=== PATIENT | female | born 1960 | race Caucasian/White ===

== ENCOUNTER → 2017-08-13 09:21 | Day surgery (SDC) | payer OTHER, SELFPAY ==
--- NOTE | 2017-08-13 10:09 | HMH.PMPROC ---
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 She is doing very well with her intrathecal hydromorphone pain pump. She is currently going at 0.15 mg per day. She has no complaints and no side effects. She was to continue with the same dose. We will refill her today. She does have a normal gait. Motor strength of the lower extremities is 5/5. There is no gross sensory deficit. Procedure Details:: Informed consent was obtained and the risks and benefits of the procedure was explained to the patient. The patient was taken to the procedure room. The pump was interrogated. The area over the pump was prepped using ChloraPrep. The pump was accessed with a 22-gauge needle. Approximately 4.5 mL's of the intrathecal solution was withdrawn and discarded. The pump was then refilled with 20 mL's of intrathecal hydromorphone 1 mg/mL. The pump was interrogated and the infusion was continued at 0.15 mg per day. The patient tolerated the procedure well with no complication. Plan and Disposition:: We will follow-up with her at her next pump refill. If she has any problems or questions she is to call me back in the pain clinic.
[2017-08-13 10:10] VITALS: BP 154/96; PULSE 98; RESP 18; TEMP 36.8; O2SAT 97; BMI 34.7
[2017-08-13 10:15] VITALS: BP 142/95; PULSE 95; RESP 18; O2SAT 97
--- NOTE | 2019-02-18 09:12 | PC.NURSE ---
called patient, with no response, to schedule an office follow up appointment.
== END ==
PROVIDERS: Visit Provider Anesthesiology
DX: M51.16 Intervertebral disc disorders with radiculopathy, lumbar region (principal)
CPT/HCPCS: 95991

== ENCOUNTER → 2019-03-29 14:51 | Outpatient (POV) | payer BC, SELFPAY ==
[2019-03-29 15:03] VITALS: BP 145/95; PULSE 78; RESP 18; O2SAT 98; BMI 36.1
--- NOTE | 2019-03-30 08:31 | HMH.PAINSOAP ---
[facility] Pain Management SOAP Note Subjective:: She is a very pleasant 58-year-old white female who presents today for follow-up. Patient has an intrathecal pain pump which is a hydromorphone pump going at 0.15 mg/day. She states that this is extremely beneficial she denies any side effects to it she is having relief of low back pain. However today her pain is muscular in nature it is in her neck and shoulders. Patient has palpable trigger points. 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 She rates her pain today 7 out of 10 ROS General: no recent weight change, no fever, no sleep disturbances Respiratory: no cough, no shortness of air, no recurring pulmonary infections Cardiovascular/Peripheral Vascular: No chest pain, No palpitations, no edema, no shortness of breath. Gastrointestinal: no incontinence, normal bowel movements reported Genitourinary: no incontinence Musculoskeletal: Neck pain, arm pain Psychiatric: normal mood/ affect Neurological: [denies weakness in extremities], [denies balance issues] Objective:: Physical Exam General: Alert and oriented x3, no acute distress, pleasant and cooperative, [on room air] Lungs: Resps E/U, Symmetrical chest expansion, Eyes: PERRL Musculoskeletal: Flexion and extension of cervical spine somewhat guarded secondary to pain, deep tendon reflexes normal, strength in upper and lower extremities [5/5], normal gait noted Neurological: speech clear, life skills coordinator equal, no gross sensory deficits Assessment:: Degenerative disc disease lumbar spine with lumbar radiculopathy symptoms and myofascial pain syndrome Plan:: We will start the patient on Zanaflex 2 to 4 mg 1 p.o. 3 times daily as needed. We will also start her on some diclofenac cream see if this is beneficial for her she can call us if she has any issues however if she is doing well we are going to continue this and see her back in [address] Melendez has reviewed this note and agrees with this plan of care. This note was dictated using voice recognition software and may contain errors or omissions [facility] History I have reviewed the patient's past medical history: Yes Medical History: Reports:: Hyperlipidemia, Hypertension Denies:: Cancer, Diabetes Mellitus Type 1, Diabetes Mellitus Type 2, MRSA, Seizures *Have you ever received a pneumonia vaccine?: Yes *Have you received a flu vaccine this season?: Yes Other Medical History: Reports: Arthritis Other Surgeries: Yes: Other (pain pump implant, cysto) Amputation: No Fractures: No - *Social History Smoking Status: Never smoker Alcohol Intake: never *Occupational Status:: other *Travel in the last 8 weeks: None Family Hx:: Non-contributory
== END ==
PROVIDERS: Visit Provider Clinical Nurse Specialist Family Health
DX: M51.16 Intervertebral disc disorders with radiculopathy, lumbar region (principal); M79.18 Myalgia, other site
CPT/HCPCS: 99212

== ENCOUNTER → 2019-11-29 14:41 | Outpatient (POV) | payer BC, SELFPAY ==
--- NOTE | 2019-11-30 07:48 | HMH.VVPMSO ---
[facility] Virtual Visit SOAP Consent for virtual visit:: With the recent concerns about the COVID-19, we are trying to minimize exposure to you by shifting to telehealth appointments whenever possible. It restricts me from seeing you in person, but the trade off is protecting you during this pandemic. Can you see and hear me okay, and do you consent to this option? If not, I would be happy to see if we can reschedule your appointment in the future, when feasible. Has patient consented to this virtual visit?: Yes Subjective:: Patient is a pleasant 59-year-old white female who presents today for a telehealth visit. Patient has an intrathecal pain pump which she has hydromorphone. She is doing extremely well with this. She rates her pain a 2 out of 10. She is on a home refill program. Patient's urine drug screens have been appropriate. Her Ronaldo #[id number] reviewed and appropriate. ROS General: no recent weight change, no fever, no sleep disturbances Respiratory: no cough, no shortness of air, no recurring pulmonary infections Cardiovascular/Peripheral Vascular: No chest pain, No palpitations, no edema, no shortness of breath. Gastrointestinal: no new onset incontinence, normal bowel movements reported Genitourinary: no new onset incontinence Musculoskeletal: Back pain at times Psychiatric: normal mood/ affect, Neurological: [denies new onset weakness in extremities], [denies new onset balance issues] Objective:: Physical exam: Constitutional: Healthy appearing, well-developed, alert, in no acute distress Psychiatric: Judgment and insight intact, Alert and oriented x4 Mood and affect: Mood normal, affect appropriate Head and face: Inspection: Normocephalic atraumatic, extraocular movement intact Respiratory: Breathing nonlabored, nondyspneic Cardiovascular: No cyanosis, clubbing, or edema observed Skin: Head and neck: Skin with no lesions or rash observed Gait: Able to walk without assistive device: Able to heel and toe walk Neurologic: Sensation grossly intact per patient Musculoskeletal: Decreased range of motion lumbar spine noted Assessment:: Degenerative disc disease lumbar spine with lumbar radiculopathy symptoms Plan:: We will see the patient back in 6 months reassess her symptoms at that that time she has been instructed to call the office if she has any issues prior to her next appointment. Dr. Melendez has reviewed this note and agrees with this plan of care. This note was dictated using voice recognition software and may contain errors or omissions Time In:: 14:45 Time Out:: 14:51 [facility] History I have reviewed the patient's past medical history: Yes Medical History: Reports:: Hyperlipidemia, Hypertension Denies:: Cancer, Diabetes Mellitus Type 1, Diabetes Mellitus Type 2, MRSA, Seizures *Have you ever received a pneumonia vaccine?: Yes *Have you received a flu vaccine this season?: Yes Other Medical History: Reports: Arthritis Other Surgeries: Yes: Other (pain pump implant, cysto) Amputation: No Fractures: No - *Social History Smoking Status: Never smoker Alcohol Intake: never *Occupational Status:: other *Travel in the last 8 weeks: None Family Hx:: Non-contributory
== END ==
PROVIDERS: Visit Provider Clinical Nurse Specialist Family Health
DX: M51.16 Intervertebral disc disorders with radiculopathy, lumbar region (principal)
CPT/HCPCS: 99212

== ENCOUNTER → 2020-06-08 13:51 | Outpatient (POV) | payer BC, SELFPAY ==
--- NOTE | 2020-06-08 14:28 | P.CONS_ITS ---
[facility] Pain Management SOAP Note Subjective:: Patient is a pleasant 59-year-old white female who presents today for follow-up. Patient has an intrathecal pain pump she has hydromorphone. She is doing extremely well with this. She rates her pain today 4 out of 10. She is on a home refill program. Her urine drug screens have been appropriate. [facility] #[id number] reviewed and appropriate. Patient is continuing to work. ROS General: no recent weight change, no fever, no sleep disturbances Respiratory: no cough, no shortness of air, no recurring pulmonary infections Cardiovascular/Peripheral Vascular: No chest pain, No palpitations, no edema, no shortness of breath. Gastrointestinal: no new onset incontinence, normal bowel movements reported Genitourinary: no new onset incontinence Musculoskeletal: Back pain, leg pain, neck pain Psychiatric: normal mood/ affect Neurological: [denies new onset weakness in extremities], [denies new onset balance issues] Objective:: Physical Exam General: Alert and oriented x3, no acute distress, pleasant and cooperative, [on room air] Lungs: Resps E/U, Symmetrical chest expansion, Eyes: PERRL Musculoskeletal: Flexion and extension of lumbar spine somewhat guarded secondary to pain, deep tendon reflexes normal, strength in upper and lower extremities [5/5], slightly antalgic gait noted Neurological: speech clear, cheese sprayer equal, no gross sensory deficits Assessment:: Degenerative disc disease lumbar spine lumbar radiculopathy Plan:: We will follow up with the patient in 6 months reassess her symptoms at that time she has been instructed to call the office if she has any issues prior to her next appointment. Dr. Melendez has reviewed this note and agrees with this plan of care. This note was dictated using voice recognition software and may contain errors or omissions [facility] History I have reviewed the patient's past medical history: Yes Medical History: Reports:: Hyperlipidemia, Hypertension Denies:: Cancer, Diabetes Mellitus Type 1, Diabetes Mellitus Type 2, MRSA, Seizures *Have you ever received a pneumonia vaccine?: Yes *Have you received a flu vaccine this season?: Yes Other Medical History: Reports: Arthritis Other Surgeries: Yes: Other (pain pump implant, cysto) Amputation: No Fractures: No - *Social History Smoking Status: Never smoker Alcohol Intake: never *Occupational Status:: other *Travel in the last 8 weeks: None Family Hx:: Non-contributory
[2020-06-08 15:00] VITALS: BP 125/88; PULSE 85; RESP 18; TEMP 36.8; O2SAT 98; BMI 36.6
== END ==
PROVIDERS: Visit Provider Clinical Nurse Specialist Family Health
DX: M51.16 Intervertebral disc disorders with radiculopathy, lumbar region (principal)
CPT/HCPCS: 99212

== ENCOUNTER → 2020-12-07 14:13 | Outpatient (POV) | payer OTHER, SELFPAY ==
[2020-12-07 15:06] VITALS: BP 167/99; PULSE 102; RESP 18; O2SAT 96; BMI 36.6
--- NOTE | 2020-12-07 16:44 | P.CONS_ITS ---
[facility] Pain Management SOAP Note Subjective:: Patient is a 60-year-old white female who presents today for follow-up. She is at home refill patient with intrathecal therapy of hydromorphone. She rates her pain a 2 out of 10 today. She is doing well overall and denies any side effects to her medication. Patient's drug screens are monitored through [employer]. They have been appropriate. Her Ronaldo #[id number] has been reviewed and is appropriate. Review of Systems General: No recent weight changes, no fever, no sleep disturbances Respiratory: No cough, no shortness of air, no recurring pulmonary infections Cardiovascular/peripheral vascular: No chest pain, no palpitations, no edema, no shortness of breath Gastrointestinal: No new onset incontinence, normal bowel movements reported Genitourinary: No new onset incontinence Musculoskeletal: interRemittent low back pain Psychiatric: Normal mood/affect Neurological: [Denies weakness in extremities], [denies balance issues] Objective:: Physical exam General: Alert and oriented x3, no acute distress, pleasant and cooperative, [on room air] Lungs: Respirations even and unlabored, symmetrical chest expansion Eyes: PERRL Musculoskeletal: Flexion and extension of lumbar spine somewhat guarded secondary to pain, deep tendon reflexes normal, strength in upper and lower extremities [5/5], [abnormal gait noted] Neurological: Speech clear, customer support technician equal, no gross sensory deficit Assessment:: Degenerative disc disease lumbar spine with lumbar radiculopathy symptoms Plan:: Patient is doing well overall with her intrathecal therapy. We will plan to follow-up with her in 6 months for reevaluation of her symptoms. Patient has been instructed to contact the clinic with any concerns before the next appointment. Dr. Melendez has reviewed this note and agrees with this plan of care. This note was dictated using voice recognition software and make contain errors or omissions. [facility] History I have reviewed the patient's past medical history: Yes Medical History: Reports:: Hyperlipidemia, Hypertension Denies:: Cancer, Diabetes Mellitus Type 1, Diabetes Mellitus Type 2, MRSA, Seizures *Have you ever received a pneumonia vaccine?: Yes *Have you received a flu vaccine this season?: Yes Other Medical History: Reports: Arthritis Other Surgeries: Yes: Other (pain pump implant, cysto) Amputation: No Fractures: No - *Social History Smoking Status: Never smoker Alcohol Intake: never *Occupational Status:: employed *Travel in the last 8 weeks: None Family Hx:: Non-contributory
== END ==
PROVIDERS: Visit Provider Clinical Nurse Specialist Family Health
DX: M51.16 Intervertebral disc disorders with radiculopathy, lumbar region (principal)
CPT/HCPCS: 99212; G0463

== ENCOUNTER → 2021-05-07 14:16 | Outpatient (POV) | payer OTHER, SELFPAY ==
--- NOTE | 2021-05-07 15:26 | HMH.PAINSOAP ---
[facility] Pain Management SOAP Note Subjective:: Patient is a 60-year-old white female who presents today for 6-month follow-up. She is seen through [facility] and refilled at home. She is also managed with her drug screens through [facility]. 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 She is having increased pain in her cervical spine as well as her right thoracic spine. She does rate her pain a 6 or 7 out of 10. In the past she has had Botox injections for dystonia by Dr. Jang. Unfortunately, the insurance did stop paying for the injections. She is having pain to the right side of her neck with headaches. This has started since doing more hands-on work at her job. She is also having right mid back pain. She has had RFA in the past to the thoracic spine which gave her significant relief years ago. She says the pain also started to this area since having to do more hands-on work. She is continue with physical therapy and home stretching. She does take [id number] medications for inflammation. The patient says the pain has progressively worsened over the last few weeks. She has not had any imaging to her cervical or thoracic spine for some time. She is interested in imaging to determine pathology of pain. Review of Systems General: No recent weight changes, no fever, no sleep disturbances Respiratory: No cough, no shortness of air, no recurring pulmonary infections Cardiovascular/peripheral vascular: No chest pain, no palpitations, no edema, no shortness of breath Gastrointestinal: No new onset incontinence, normal bowel movements reported Genitourinary: No new onset incontinence Musculoskeletal: Sudden neck pain with radiation into right scapular area, headache right side, mid right side back pain Psychiatric: [Normal mood/affect] Neurological: [Denies weakness in extremities], [denies balance issues] Objective:: Physical exam General: Alert and oriented x3, no acute distress, pleasant and cooperative Lungs: Respirations even and unlabored, symmetrical chest expansion Eyes: PERRL Musculoskeletal: Flexion and extension of vocal and thoracic [spine] somewhat guarded secondary to pain, normal gait noted Neurological: Speech clear, no gross sensory deficit Assessment:: Neck pain, headache, mid back pain Plan:: We will schedule the patient for MRI cervical and thoracic spine. She has not had any recent imaging and is having change in pain. Patient is getting significant relief with the pump to her lumbar spine. We will plan to see the patient back after imaging for reevaluation of symptoms and discussion for further plan of care. Patient has been instructed to contact the clinic with any concerns before the next appointment. Dr. Melendez has reviewed this note and agrees with this plan of care. This note was dictated using voice recognition software and make contain errors or omissions. [facility] History I have reviewed the patient's past medical history: Yes Medical History: Reports:: Hyperlipidemia, Hypertension Denies:: Cancer, Diabetes Mellitus Type 1, Diabetes Mellitus Type 2, MRSA, Seizures *Have you ever received a pneumonia vaccine?: Yes *Have you received a flu vaccine this season?: Yes Other Medical History: Reports: Arthritis Other Surgeries: Yes: Other (pain pump implant, cysto) Amputation: No Fractures: No - *Social History Smoking Status: Never smoker Alcohol Intake: never *Occupational Status:: employed *Travel in the last 8 weeks: None Family Hx:: Non-contributory
[2021-05-07 15:30] VITALS: BP 151/86; PULSE 87; RESP 18; O2SAT 98; BMI 37.5
== END ==
PROVIDERS: Visit Provider Clinical Nurse Specialist Family Health
DX: M54.2 Cervicalgia (principal); R51.9 Headache, unspecified; M54.6 Pain in thoracic spine
CPT/HCPCS: 99212; G0463

== ENCOUNTER → 2021-12-10 14:19 | Outpatient (POV) | payer OTHER, SELFPAY ==
[2021-12-10 14:57] VITALS: BP 150/93; PULSE 86; RESP 18; TEMP 36.8; O2SAT 97; BMI 38.2
--- NOTE | 2021-12-10 15:23 | HMH.PAINSOAP ---
[facility] Pain Management SOAP Note Subjective:: Patient is a pleasant 61-year-old female who presents today for follow-up. Patient is currently being treated for degenerative disc disease of the lumbar spine with lumbar radiculopathy symptoms, chronic neck pain and chronic mid back pain. Patient is currently being managed with intrathecal pain pump with the Medtronic System. Patient is currently on Dilaudid 0.18mg/day. Patient is a home refill with [facility]. Denies any issues with the intrathecal pain pump. Today, patient is having some worsening midback pain. She states that she had a rhizotomy in this area several years ago that was done by Dr. Melendez. The ablation helped really well. She continues to work on the computer causing her to have neck and shoulder pain. We did order a cervical and thoracic MRI when we last saw her. Cervical MRI shows multilelvel DDD cervical and has a right moderate neural foraminal narrowing at C5-C6. Thoracic MRI is grossly unremarkable. Rates pain today as 7/10. She does continue to do OMT twice a month. She's tried PT in the past with some relief. Ronaldo [id number], MEQ 0. Review of Systems: General: No recent weight changes, no fever, no sleep disturbances Respiratory: No cough, no shortness of air, no recurring pulmonary infections Cardiovascular/peripheral vascular: No chest pain, no palpitations, no edema, no shortness of breath Gastrointestinal: No new onset incontinence, normal bowel movements reported Genitourinary: No new onset incontinence Musculoskeletal: Neck pain, mid back pain, low back pain Psychiatric: [Normal mood/affect] Neurological: [Denies weakness in extremities], [denies balance issues] Objective:: Physical Exam: General: Alert and oriented x3, no acute distress, pleasant and cooperative Lungs: Respirations even and unlabored, symmetrical chest expansion Eyes: PERRL Musculoskeletal: Flexion and extension of cervical, thoracic and lumbar [spine] somewhat guarded secondary to pain, [antalgic gait noted] Neurological: Speech clear, no gross sensory deficit Assessment:: Degenerative disc disease of lumbar spine with lumbar radiculopathy symptoms, chronic neck pain, chronic mid back pain, myofascial pain Plan:: Patient is doing well with her intrathecal pain pump. Her Medtronic system is at end-of-life in May 2022. We will schedule the patient for a replacement in the next few months. Patient continues to have pain around her mid back just around her bilateral shoulder blades. She states that she had a thoracic RFA in this area in the past. I have looked at her notes in [facility] but I could not see this note. She states that she had this done in [place] at Dr. Jeffrey's office when we used to be there. We will reach out to Dr. Jeffrey's office to see if we can get this note. Once we get this note, we will schedule the patient for a repeat thoracic RFA. I will also refer the patient to PT for further eval of myofascial pain around her neck, shoulder, and shoulder blades. Patient has been instructed to contact the clinic with any concerns before the next appointment. Dr. Melendez has reviewed this note and agrees with this plan of care. This note was dictated using voice recognition software and make contain errors or omissions. [facility] History Medical History: Reports:: Hyperlipidemia, Hypertension Denies:: Cancer, Diabetes Mellitus Type 1, Diabetes Mellitus Type 2, MRSA, Seizures *Have you ever received a pneumonia vaccine?: Yes *Have you received a flu vaccine this season?: No Other Medical History: Reports: Arthritis Other Surgeries: Yes: Other (pain pump implant, cysto) Amputation: No Fractures: No - *Social History Smoking Status: Never smoker Alcohol Intake: never *Occupational Status:: employed *Travel in the last 8 weeks: None Family Hx:: Non-contributory
== END ==
PROVIDERS: Visit Provider Student in an Organized Health Care Education/Training Program
DX: M51.16 Intervertebral disc disorders with radiculopathy, lumbar region (principal); M54.2 Cervicalgia; M54.9 Dorsalgia, unspecified; G89.29 Other chronic pain; M79.18 Myalgia, other site
CPT/HCPCS: 99212; G0463

== ENCOUNTER 2022-04-12 08:55 | Day surgery (SDC) | payer OTHER, SELFPAY ==
[2022-04-10 11:53] VITALS: BMI 36.6
[2022-04-12 09:11] VITALS: BP 161/80; PULSE 84; RESP 18; TEMP 36.2; O2SAT 97
[2022-04-12 09:44] LABS: Chloride 102 mmol/L (98-107); Potassium 3.7 mmoL/L (3.5-5.1); Sodium 141 mmol/L (136-145)
--- NOTE | 2022-04-12 09:45 | EXP.ANES.CKL ---
[facility] PFS Medical History Allergies Anxiety Arthritis Colonoscopy planned Edema History of back pain History of COVID-19 History of gastroesophageal reflux (GERD) Hypertension Osteoarthritis Polypoid cystitis Post-menopausal bleeding Sleep apnea Surgical History History of surgery History of surgery Family History Father Stroke Heart attack Mother Heart attack Lupus Grandmother Stroke Social History Smoking Status: Never smoker alcohol intake: never substance use type: denies use current occupational status: employed Travel in the last 8 weeks: None current occupation: RN current occupational exposures/hazards: No caffeine: Yes [facility] Anesthesia Checklist Patient Identification Patient Identification: Arm Band Structural Data Admitted From: Home Planned Operative Procedure/s: Pain Pump Explaint + Pain Pump Implant Consent for Planned Operative Procedure(s) Verified: Yes Verified Documents: Surgical Consent and History and Physical NPO Status Verified Time NPO: 00:00 Additional verifications Anesthesia Reactions: No Hx Blood Transfusions: No Blood Transfusion Reaction: No Airway Assessment C-Spine Mobility Assessed: Yes TMJ Mobility Assessed: Yes Dentition: Good Dentition Neurological Assessment Level of Consciousness: Awake and Alert Anesthesia Plan Anesthesia Risk discussed: Yes Anesthesia Plan: Verified ASA Class: II Anesthesia Type: MAC
[2022-04-12 09:47] LABS: Anion Gap 9.7 mEq/L (5-15); Blood Urea Nitrogen 11 mg/dl (7-17); Calcium 8.5 mg/dl (8.4-10.2); Carbon Dioxide 33 mmol/L (22.0-30.0); Creatinine Clearance Estimated 91 mL/min (50-200); Estimated Glomerular Filt Rate 101 ml/min (>60); GFR (African American) 122 ML/MIN (>60); Glucose 92 mg/dl (74-100)
[2022-04-12 09:48] LABS: Basophils # 0.1 K/mm3 (0-0.2); Basophils % 1.9 % (0.1-2.0); Eosinophils # 0.3 K/mm3 (0.0-0.4); Eosinophils % 5.7 % (0.1-12.0); Hematocrit 39.2 % (37.0-47.0); Hemoglobin 12.9 g/dL (12.2-16.2); Lymphocytes # 1.6 K/mm3 (0.7-4.5); Lymphocytes % 27.5 % (10-50); Mean Corpuscular Hemoglobin 30.6 pg (27.0-31.2); Mean Corpuscular Volume 92.8 fl (81-99); Mean Platelet Volume 7.9 fl (7.4-10.4); Monocytes # 0.4 K/mm3 (0.1-1.0); Monocytes % 6.6 % (1.7-9.3); Neutrophils # 3.5 K/mm3 (1.8-7.8); Neutrophils % 58.3 % (37.0-80.0); Platelet Count 322 K/mm3 (142-424); Red Blood Count 4.22 M/mm3 (4.20-5.40); Red Cell Distribution Width 13.8 % (11.5-17.5)
--- NOTE | 2022-04-12 10:25 | SUR.PREOP ---
assisted to bathroom and back to stretcher IV vanc started . Patient stated she was comfortable. Friend at BS
[2022-04-12 12:35] VITALS: BP 141/70; PULSE 79; RESP 16; TEMP 36.4; O2SAT 93
[2022-04-12 12:45] VITALS: BP 136/68; PULSE 58; RESP 16; O2SAT 93
[2022-04-12 12:55] VITALS: BP 142/73; PULSE 73; RESP 17; O2SAT 95
[2022-04-12 13:05] VITALS: BP 136/75; PULSE 74; RESP 17; O2SAT 99
[2022-04-12 13:35] VITALS: BP 140/72; PULSE 72; RESP 18; O2SAT 99
--- NOTE | 2022-04-12 13:49 | EXP.OP.NOTE ---
Date of procedure: 04/12/22 Pre-op Diagnosis:: End-of-life intrathecal pain pump for degenerative disc disease of lumbar spine with lumbar radiculopathy symptoms Post-op Diagnosis:: Same Procedure performed:: Replacement pain pump generator Surgeon:: Miguel Melendez MD ASSEMBLIES AND INSTALLATIONS INSPECTOR:: Alessio Pompa Anesthesia: MAC Estimated blood loss (mL): 10 Clinical Note:: This patient is a pleasant 61-year-old white female who has an end-of-life of intrathecal pain pump generator. She is doing very well with her pain pump. She has a Medtronic SynchroMed 2 pump. She is currently on intrathecal hydromorphone 1 mg/mL at 0.18 mg/day. Her pump is nearing end-of-life we will replace her pain pump generator today. Operative findings:: None Operative note:: Informed consent was obtained the risk and benefits of the procedure were explained to the patient. Patient was taken the operating room and prepped and draped in sterile fashion. The skin and subcutaneous tissues overlying the pump was anesthetized using lidocaine. I made an incision and dissected out the pain pump generator. We dissected out the catheter. The catheter was then cut and connected to a new connector and new pump. Previous to this I prepared the pump with 20 mL of intrathecal hydromorphone 1 mg/mL. The incision was irrigated with antibiotic solution. The pump was placed back in the pocket. We were able to freely withdraw clear CSF through the side-port. The incision was then closed with 2-0 Vicryl and brandee. The pump was interrogated and started back at 0.18 mg/day of intrathecal hydromorphone. Patient tolerated procedure well with no complications. Plan and disposition: Follow-up with this patient in 2 weeks. Will reevaluate her symptoms at that time. Condition: stable Disposition: PACU Complications:: None
== END 2022-04-12 14:00 | disposition home or self-care (01) ==
PROVIDERS: Visit Provider Anesthesiology
PROC: (CPT 62362; principal; 2022-04-12 10:30)
DX: M51.16 Intervertebral disc disorders with radiculopathy, lumbar region (principal); Z72.0 Tobacco use; Z79.899 Other long term (current) drug therapy
CPT/HCPCS: 62362; 62370; 80048; 85025; 96374; C1755; C1772

== ENCOUNTER → 2022-04-18 09:36 | Outpatient (POV) | payer OTHER, SELFPAY ==
[2022-04-18 10:44] VITALS: BP 154/103; PULSE 100; RESP 18; TEMP 36.3; O2SAT 95; BMI 36.8
--- NOTE | 2022-04-18 12:18 | EXP.PAIN.SOA ---
[facility] Pain Management SOAP Note Subjective:: Patient is a pleasant 61-year-old female who presents today for follow-up of intrathecal pain pump replacement generator on 04/12/2022. We are currently treating the patient for degenerative disc disease of lumbar spine with lumbar radiculopathy symptoms, intrathecal pain pump end-of-life. Today the patient rates her pain a 1 out of 10. The patient states the pain is primarily in her low back as incisional pain. Patient states she did have a reaction to the preop antibiotic vancomycin which caused significant itching and erythema along her upper body and upper extremities. Patient states that Friday she was given Solu-Medrol which helped her symptoms and she was given additionally prednisone on Friday. Patient has been using hydrocortisone cream to help with the itching. Today she states it is much better and is appearing to decrease daily. Patient denies any other issues following her procedure. Patient is currently managed with Dilaudid 0.1801 mg/day. Patient denies any side effects from this medication. She states this medication does adequately help manage her pain symptoms. She is requesting to set up her PTM device at today's visit. Patient states she was having postmenopausal bleeding previously and is now scheduled for a total hysterectomy on June 06 in [place]. Her Ronaldo is [phone]. It is been reviewed and appropriate. Review of Systems: General: No recent weight changes, no fever, no sleep disturbances Respiratory: No cough, no shortness of air, no recurring pulmonary infections Cardiovascular/peripheral vascular: No chest pain, no palpitations, no edema, no shortness of breath Gastrointestinal: No new onset incontinence, normal bowel movements reported Genitourinary: No new onset incontinence Musculoskeletal: Low back pain Psychiatric: [Normal mood/affect] Neurological: [Denies weakness in extremities], [denies balance issues] Objective:: Physical Exam: General: Alert and oriented x3, no acute distress, pleasant and cooperative Lungs: Respirations even and unlabored, symmetrical chest expansion Eyes: PERRL Musculoskeletal: Flexion and extension of lumbar [spine] somewhat guarded secondary to pain, [antalgic gait noted] Neurological: Speech clear, no gross sensory deficit Skin: Clean, dry, brandee intact, incision site well approximated with no erythema Assessment:: Degenerative disc disease of lumbar spine with lumbar radiculopathy symptoms, intrathecal pain pump end-of-life Plan:: Patient is doing well following her replacement intrathecal pain pump generator change. Patient's pain symptoms are well managed with her current intrathecal pump settings of Dilaudid 0.1801 mg/day. We did set up her PTM device at today's visit with Dilaudid 0.02 mg 3 use up to 4 times per day with a max daily dose of Dilaudid 0.2592 mg. Patient did have limited range of motion of her lumbar spine during today's visit. She is continuing to use her back brace following surgery. Patient's surgical incision site is clean, dry, well approximated with brandee intact and no erythema noted. I have counseled the patient to continue to monitor for any signs of infection and that we will follow-up with her in 2 weeks. At her next visit we will plan on removing her brandee and applying Dermabond and Steri-Strips. Patient will return to clinic in 2 weeks for reevaluation of symptoms and follow-up. [facility] Medical History Allergies Anxiety Arthritis Colonoscopy planned Edema History of back pain History of COVID-19 History of gastroesophageal reflux (GERD) Hypertension Osteoarthritis Polypoid cystitis Post-menopausal bleeding Sleep apnea Surgical History History of surgery History of surgery Family History Father Stroke Heart attack Mother
== END ==
PROVIDERS: Visit Provider Nurse Practitioner Family
DX: M51.16 Intervertebral disc disorders with radiculopathy, lumbar region (principal); Z79.899 Other long term (current) drug therapy
CPT/HCPCS: 62368; 99213; G0463

== ENCOUNTER → 2022-05-02 13:21 | Outpatient (POV) | payer OTHER, SELFPAY ==
[2022-05-02 14:07] VITALS: BP 136/87; PULSE 100; RESP 18; TEMP 36.3; O2SAT 97; BMI 37.3
--- NOTE | 2022-05-02 14:30 | EXP.PAIN.SOA ---
[facility] Pain Management SOAP Note Subjective:: Patient is a pleasant 61-year-old female who presents today for follow-up. We are currently treating the patient for degenerative disc disease of lumbar spine with lumbar radiculopathy symptoms, intrathecal pain pump end-of-life. Today the patient rates her pain a 4 out of 10. She states the pain is in her low back as well as her lower extremities. Patient did have her replacement on 04/12/2022. Patient did have a antibiotic vancomycin reaction following this procedure which caused significant erythema and itching along her body and upper extremities. Patient was given Solu-Medrol and prednisone along with hydrocortisone cream to help. Patient is much better today however she does states she continues to have skin dryness now and has to use lotion multiple times throughout the day.. Patient states she is not having any problems with her incision sites and continues to wear her brace constantly. Patient is currently managed with Dilaudid 1 mg/mL with a daily dose of 0.1801 mg/day. Patient denies any side effects from this medication. She states this medication does help manage her pain symptoms. At our last visit she did get her PTM device set up. Patient states she is having no problems with this at this time. Patient is scheduled for a total hysterectomy on June 06 in [place]. Patient's Ronaldo is [phone]. It has been reviewed and appropriate. Review of Systems: General: No recent weight changes, no fever, no sleep disturbances Respiratory: No cough, no shortness of air, no recurring pulmonary infections Cardiovascular/peripheral vascular: No chest pain, no palpitations, no edema, no shortness of breath Gastrointestinal: No new onset incontinence, normal bowel movements reported Genitourinary: No new onset incontinence Musculoskeletal: Low back pain Psychiatric: [Normal mood/affect] Neurological: [Denies weakness in extremities], [denies balance issues] Objective:: Physical Exam: General: Alert and oriented x3, no acute distress, pleasant and cooperative Lungs: Respirations even and unlabored, symmetrical chest expansion Eyes: PERRL Musculoskeletal: Flexion and extension of lumbar [spine] somewhat guarded secondary to pain, [antalgic gait noted] Neurological: Speech clear, no gross sensory deficit Skin: Incision sites dry and intact, well approximated Steri-Strips in place Assessment:: Degenerative disc disease of lumbar spine with lumbar radiculopathy symptoms Plan:: Patient continues to do well following her intrathecal pain pump replacement generator. At this time her incision sites are clean, dry, well approximated with minimal erythema noted. Dermabond and Steri-Strips were applied. I have counseled the patient to continue her restrictions of minimal bending lifting twisting and no tub bathing and patient is to continue wearing her abdominal binder and or brace for the full 6 weeks. We will follow-up with the patient in 1 month. The patient will return to clinic in 1 month for reevaluation of symptoms and follow-up. Patient has been instructed to contact the clinic with any concerns before the next appointment. Dr. Melendez has reviewed this note and agrees with this plan of care. This note was dictated using voice recognition software and make contain errors or omissions. -- It Is medically necessary for this patient to continue to have their intrathecal pump refilled at regular intervals. This patient had an intrathecal pain pump implanted after meeting criteria of chronic intractable pain for greater than 3 months and failing conservative treatments. Patient has committed and been compliant to the treatment plan and all planned follow up care. Since implantation of the intrathecal pain pump, the patient has had decreased pain and been more functional. Oral medications have been reduced including intake of oral opioids. Patient continues to do well with intrathecal therapy with decrease in pa
== END ==
PROVIDERS: Visit Provider Nurse Practitioner Family
DX: M51.16 Intervertebral disc disorders with radiculopathy, lumbar region (principal)
CPT/HCPCS: 62368; 99212; 99213; G0463

== ENCOUNTER → 2022-06-03 14:12 | Outpatient (POV) | payer OTHER, SELFPAY ==
[2022-06-03 14:27] VITALS: BP 153/89; PULSE 83; RESP 18; O2SAT 97; BMI 37.9
--- NOTE | 2022-06-03 14:54 | EXP.PAIN.SOA ---
[facility] Pain Management SOAP Note Subjective:: Patient is a pleasant 61-year-old female who presents today for follow-up. We are currently treating the patient for degenerative disc disease of lumbar spine with lumbar radiculopathy symptoms, intrathecal pain pump end-of-life. Today the patient rates her pain a 4 out of 10. Patient denies any new trauma or injury. Patient denies any change in location or type of pain she experiences. Patient has been doing well following her procedure. Patient previously had a antibiotic reaction to vancomycin which caused significant erythema and itching all along her upper body and extremities. Patient was given steroids along with hydrocortisone cream to help. Patient denies any additional issues regarding this. Patient does states she is experiencing some swelling in her bilateral lower extremities with her left leg being worse. Patient states she does elevate her extremities whenever she can as well as use compression stockings as needed. Patient states she has been using her PTM device occasionally with no problems. Patient is scheduled for a hysterectomy on the eighth in [place]. Patient does state this is scheduled to be laparoscopic however there is a chance they may need to open. Patient states they did request her pain pump to be turned off prior to this procedure however the patient has concerns to do this. Patient is currently managed with Dilaudid 1 mg/mL with a daily dose of 0.1801 mg/day. Patient denies any side effects from this medication. She states this medication does help her pain symptoms. Her Ronaldo is [phone]. It has been reviewed and appropriate. Review of Systems: General: No recent weight changes, no fever, no sleep disturbances Respiratory: No cough, no shortness of air, no recurring pulmonary infections Cardiovascular/peripheral vascular: No chest pain, no palpitations, no edema, no shortness of breath Gastrointestinal: No new onset incontinence, normal bowel movements reported Genitourinary: No new onset incontinence Musculoskeletal: Low back pain Psychiatric: [Normal mood/affect] Neurological: [Denies weakness in extremities], [denies balance issues] Objective:: Physical Exam: General: Alert and oriented x3, no acute distress, pleasant and cooperative Lungs: Respirations even and unlabored, symmetrical chest expansion Eyes: PERRL Musculoskeletal: Flexion and extension of lumbar [spine] somewhat guarded secondary to pain, [antalgic gait noted] Neurological: Speech clear, no gross sensory deficit Assessment:: Degenerative disc disease of lumbar spine with lumbar radiculopathy symptoms, intrathecal pain pump end-of-life Plan:: Patient continues to have significant pain improvement following her pump replacement. I have instructed the patient to continue to monitor the edema in her bilateral lower extremities. Patient is on a very low-dose of Dilaudid 1 mg/mL with a daily dose of 0.1801 mg/day. Patient does have increased risk of withdrawal symptoms if we turn her pump medication off. I have instructed the patient to take this note and a pump print out to her intrathecal pump medication to her physician for her hysterectomy to show that she is on low-dose medication and can continue to have this device on during her procedure with no increased risk. Patient's [employer] physician can still provide postoperative pain coverage if needed. Patient is scheduled for a pump refill on or before July 03, 2022. I have counseled the patient to call our office and let us know how she does following her hysterectomy. Patient is an at home refill patient. Patient has been instructed to contact the clinic with any concerns before the next appointment. Dr. Melendez has reviewed this note and agrees with this plan of care. This note was dictated using voice recognition software and make contain errors or omissions. -- It Is medically necessary for this patient to continue to have their intrathecal pump refi
== END ==
PROVIDERS: Visit Provider Nurse Practitioner Family
DX: M51.16 Intervertebral disc disorders with radiculopathy, lumbar region (principal); Z79.899 Other long term (current) drug therapy
CPT/HCPCS: 99212; G0463

== ENCOUNTER → 2022-12-05 13:03 | Outpatient (POV) | payer OTHER, SELFPAY ==
--- NOTE | 2022-12-05 14:04 | EXP.PAIN.SOA ---
[facility] Pain Management SOAP Note Subjective:: Patient is a pleasant 62-year-old female who presents today for 6-month follow-up. We are currently treating the patient for degenerative disc disease of lumbar spine with lumbar radiculopathy symptoms, intrathecal pain pump. Today she rates her pain a 6 out of 10. She denies any change location or type of pain she experiences. From our last visit she has had her hysterectomy and umbilical hernia repair and states this went exceptionally well. Patient states that she does continue to have mid back pain from time to time however at this time it is tolerable. Patient is currently managed with intrathecal Dilaudid 1 mg/mL with a daily dose of 0.1801 mg/day. Patient denies any side effects from this medication. She states this dose is working well for her current pain symptoms. She is requesting to be changed over to the [place] office location related to her increased travel in order to get to the [place] office. Her Ronaldo is [phone]. Its been reviewed and appropriate. Review of Systems: General: No recent weight changes, no fever, no sleep disturbances Respiratory: No cough, no shortness of air, no recurring pulmonary infections Cardiovascular/peripheral vascular: No chest pain, no palpitations, no edema, no shortness of breath Gastrointestinal: No new onset incontinence, normal bowel movements reported Genitourinary: No new onset incontinence Musculoskeletal: Mid back pain Psychiatric: [Normal mood/affect] Neurological: [Denies weakness in extremities], [denies balance issues] Objective:: Physical Exam: General: Alert and oriented x3, no acute distress, pleasant and cooperative Lungs: Respirations even and unlabored, symmetrical chest expansion Eyes: PERRL Musculoskeletal: Flexion and extension of thoracic [spine] somewhat guarded secondary to pain, [antalgic gait noted] Neurological: Speech clear, no gross sensory deficit Assessment:: Degenerative disc disease of lumbar spine with lumbar radiculopathy symptoms, intrathecal pain pump replacement, mid back pain Plan:: Patient continues to do well with her intrathecal pain pump medication. I will send in an order for compounding cream at today's visit. Patient will return to our [place] clinic location in 6 months for reevaluation of symptoms and follow-up. We will see the patient back in the clinic at the next intrathecal refill. Patient has been instructed to contact the clinic with any concerns before the next appointment. Dr. Melendez has reviewed this note and agrees with this plan of care. This note was dictated using voice recognition software and make contain errors or omissions. -- It Is medically necessary for this patient to continue to have their intrathecal pump refilled at regular intervals. This patient had an intrathecal pain pump implanted after meeting criteria of chronic intractable pain for greater than 3 months and failing conservative treatments. Patient has committed and been compliant to the treatment plan and all planned follow up care. Since implantation of the intrathecal pain pump, the patient has had decreased pain and been more functional. Oral medications have been reduced including intake of oral opioids. Patient continues to do well with intrathecal therapy with decrease in pain symptoms and increase in functional status. Stopping intrathecal medications can lead to life threatening withdrawal, seizures, cardiac arrest, severe pain, and possible . Pumps that are not refilled at regular intervals can be damages and cause and need for replacement. We continually titrate dose and concentration to optimize pain relief and function. We are limited in concentration for certain drugs to safely deliver medications through the pump and stay within the recommendations from the Polyanalges[employer] Consensus Committee Guidelines. Depending on dose and concentration these pumps may need to be refilled sooner than 3 months as we titrate.
[2022-12-05 14:35] VITALS: BP 150/93; PULSE 75; RESP 18; O2SAT 97; BMI 36.8
== END ==
PROVIDERS: Visit Provider Nurse Practitioner Family
DX: M51.16 Intervertebral disc disorders with radiculopathy, lumbar region (principal); Z97.8 Presence of other specified devices
CPT/HCPCS: 99212; G0463